=== PATIENT | female | born 1995 | race Caucasian/White ===

== ENCOUNTER 2016-11-11 08:35 | Emergency (ER) | payer OTHER ==
[2016-11-11 08:55] VITALS: BP 124/84
--- NOTE | 2016-12-06 19:51 | ED ---
Throat Pain/Nasal Congestion - HPI Summary HPI Summary: Pt here w/ Rt eye redness and d/c. Stuck shut this morning. Denies blurred vision, ocular pain at rest and w/ movement, but does feel a irritated and itchy. No known trauma and does not wear contact lenses. Has had URI sx as of late. Currently, no fever, chills, N/V/D, rash, neck pain, otalgia, cough, chest pain or difficulty breathing. Concerned about "pink eye". No known sick contacts. Has been up long hours studying. - History of Current Complaint Chief Complaint: EDEyeProblem Time Seen by Provider: 11/11/16 08:46 Hx Obtained From: Patient - Allergies/Home Medications Allergies/Adverse Reactions: Allergies Allergy/AdvReac Type Severity Reaction Status Date / Time Prednisone Allergy Shortness Verified 11/11/16 08:44 of Breath Sulfa Antibiotics Allergy Hives/Diff. Verified 11/11/16 08:44 Breathing/I tching PMH/Surg Hx/FS Hx/Imm Hx Previously Healthy: Yes Endocrine/Hematology History: Denies: Hx Anticoagulant Therapy, Hx Blood Disorders - Immunization History Date of Tetanus Vaccine: 2 years ago Infectious Disease History: No Infectious Disease History: Denies: Hx of Known/Suspected MRSA, Traveled Outside the [place] in Last 30 Days - Family History Known Family History: Positive: Unknown - Social History Occupation: Student Alcohol Use: Occasionally Hx Substance Use: No Substance Use Type: Reports: None Hx Tobacco Use: No Smoking Status (MU): Never Smoked Tobacco Review of Systems Negative: Fever, Chills Eyes: Other - see HPI ENT: Other - see HPI Negative: Chest Pain Negative: Shortness Of Breath Gastrointestinal: Negative Positive: no symptoms reported Skin: Negative Neurological: Negative Psychological: Normal All Other Systems Reviewed And Are Negative: Yes Physical Exam Triage Information Reviewed: Yes Vital Signs On Initial Exam: Initial Vitals Temp Pulse Resp BP Pulse Ox 97.9 F 95 15 124/84 99 11/11/16 08:39 11/11/16 08:39 11/11/16 08:39 11/11/16 08:39 11/11/16 08:39 Vital Signs Reviewed: Yes Appearance: Positive: Well-Appearing, No Pain Distress, Well-Nourished Skin: Positive: Warm, Dry - no rash over face Head/Face: Positive: Normal Head/Face Inspection - no acute edema or swelling Eyes: Positive: EOMI, [place], Conjunctiva Inflammed. Negative: Discharge - crusted lashes ENT: Positive: Hearing grossly normal, Pharynx normal - cobblestoning, Nasal congestion, TMs normal Neck: Positive: Supple, Nontender Respiratory/Lung Sounds: Positive: Clear to Auscultation, Breath Sounds Present Cardiovascular: Positive: Normal, RRR Abdomen Description: Positive: Nontender, Soft Musculoskeletal: Positive: Normal, Strength/ROM Intact Neurological: Positive: Normal, Sensory/Motor Intact, Alert, Oriented to Person Place, Time, CN Intact II-III Psychiatric: Positive: Normal Diagnostics - Vital Signs Vital Signs Temp Pulse Resp BP Pulse Ox 11/11/16 08:39 97.9 F 95 15 124/84 99 - Laboratory Lab Statement: Any lab studies that have been ordered have been reviewed, and results considered in the medical decision making process. EENT Course/Dx - Diagnoses Provider Diagnoses: Conjunctivitis, right eye Discharge - Discharge Plan Condition: Stable Disposition: HOME Prescriptions: Polymyx/Trimethoprim OPTH* [Polytrim OPHTH*] 1 drop RIGHT EYE Q3H #1 btl Patient Education Materials: Conjunctivitis (ED) Referrals: [facility] @ [facility] [Outside] Vladimir Tang MD [Medical Doctor] - Additional Instructions: You may use saline nasal washes and Sudafed as well as motrin to reduce your sinus pain/pressure. Also rinse eye with saline solution prior to application of antibiotic drops to help with irritation and to help clean drainage from eye. Do not wear contact lenses nor apply eye makeup Follow-up with Dr. Tang Sunday if symptoms do not improve - contact information included below *If you develop worse swelling, pain with eye movement, fever, chills, light sensitivity, return to ED
== END 2016-11-11 09:58 | disposition home or self-care (01) ==
LOC: ED 08:35
DX: H10.9 Unspecified conjunctivitis (principal)
CPT/HCPCS: 99281